=== PATIENT | female | born 2000 | race African-American/Black ===

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

== ENCOUNTER 2022-04-15 08:01 | Observation (INO) | payer OTHER ==
[~2022-04-15] VITALS: Ht 167.6 cm; Wt 65.8 kg
[2022-04-15] MEDS ORDERED: ACETAMINOPHEN 500MG TABLET PO SCH (09:15)
[2022-04-15] MEDS ORDERED: PREN1TAB78 MT (09:26)
== END 2022-04-15 08:45 | disposition home or self-care (01) ==
LOC: 8EST NSY 08:01 → 8 EST A/PP 08:17
PROVIDERS: ADMIT Obstetrics & Gynecology; ATTEND Obstetrics & Gynecology
DX: O26.892 Other specified pregnancy related conditions, second trimester (principal); R10.32 Left lower quadrant pain; O99.891 Other specified diseases and conditions complicating pregnancy; M54.9 Dorsalgia, unspecified; Z3A.27 27 weeks gestation of pregnancy
CPT/HCPCS: 59025; G0378; 99281

== ENCOUNTER 2022-07-19 10:07 | Observation (INO) | payer MEDICAID, OTHER ==
[~2022-07-19] VITALS: Ht 167.6 cm; Wt 80.7 kg
[~2022-07-19 10:07] MED LIST changes: -ADDERALL; +PREN1TAB78 MT
== END 2022-07-19 11:07 | disposition home or self-care (01) ==
LOC: 8 EST LDRP 10:07
PROVIDERS: ADMIT Obstetrics & Gynecology; ATTEND Obstetrics & Gynecology
DX: O36.5930 Maternal care for other known or suspected poor fetal growth, third trimester, not applicable or unspecified (principal); Z3A.35 35 weeks gestation of pregnancy
CPT/HCPCS: 59025; G0378; 99281; G0379

== ENCOUNTER 2024-02-22 20:48 | Emergency (ER) | payer OTHER ==
[~2024-02-22] VITALS: Ht 167.6 cm; Wt 65.0 kg
[2024-02-22 20:52] VITALS: O2SAT 100
[2024-02-23 00:11] LABS: BASOPHILS % 1.1 % (0.0-2.0); EOSINOPHILS % 4.4 % (0.0-5.0); HEMATOCRIT. 39.3 % (36.0-48.0); HEMOGLOBIN. 12.8 g/dL (12.0-16.0); LYMPHOCYTES % 43.6 % (20.0-50.0); MEAN CORPUSCULAR HEMOGLOBIN 27.6 pg (28.0-32.0); MEAN CORPUSCULAR HGB CONC 32.6 g/dL (31.0-37.0); MEAN CORPUSCULAR VOLUME 84.7 fL (81.0-99.0); MEAN PLATELET VOLUME 7.1 fl (7.4-10.4); NEUTROPHILS % 41.9 % (40.0-76.0); PLATELET 267 x1000/uL (130-400); RED BLOOD CELL COUNT 4.63 mill/uL (4.2-5.4); RED CELL DISTRIBUTION WIDTH 14.5 % (11.6-14.6); WHITE BLOOD COUNT 6.1 x1000/uL (4.5-11.0)
[2024-02-23 00:26] LABS: CHLORIDE 110 mEq/L (98-107); POTASSIUM 3.9 mEq/L (3.5-5.1); SODIUM 141 mEq/L (136-145)
[2024-02-23 00:27] LABS: CALCIUM 9.7 mg/dL (8.7-10.4); CARBON DIOXIDE 26 mEq/L (21-32)
[2024-02-23 00:32] LABS: GLUCOSE 73 mg/dL (70-105); UREA NITROGEN BLOOD 14 mg/dL (9-23)
[2024-02-23 00:35] LABS: ETHANOL BLOOD < 10 mg/dL (<10)
[2024-02-23 00:36] LABS: TROPONIN I HIGH SENSITIVITY 4 ng/L (3.0-34)
[2024-02-23 01:03] LABS: HCG SCREEN NEGATIVE
[2024-02-23 01:27] VITALS: BP 123/70; PULSE 61; RESP 17; TEMP 98.6
== END 2024-02-23 01:32 | disposition home or self-care (01) ==
LOC: ER 20:48
DX: R00.2 Palpitations (principal); I49.9 Cardiac arrhythmia, unspecified
CPT/HCPCS: 36415; 71045; 80048; 80320; 83735; 83880; 84100; 84484; 84703; 85025; 93005; 99285; G0480